=== PATIENT | female | born 1985 | race Caucasian/White ===

== ENCOUNTER 2016-05-22 13:34 | Emergency (ER) | payer OTHER ==
[~2016-05-22] VITALS: Ht 165.1 cm; Wt 60.3 kg
[~2016-05-22 13:34] MED LIST: MULT-506 PO; SULF800T23 PO
[2016-05-22 13:47] VITALS: TEMP 36.8; Ht 165.1 cm; Wt 60.3 kg
--- NOTE | 2016-05-22 15:18 | DIAGNOSTIC IMAGING REPORT ---
TWO VIEW CHEST CLINICAL HISTORY: Cough and fever. FINDINGS: PA and lateral chest radiographs are compared to study dated 12/20/2015. The cardiomediastinal silhouette is unremarkable. There are streaky airspace opacities in the retrocardiac region. The lungs and pleural spaces are otherwise clear. There is no pneumothorax. The bony thorax appears intact. IMPRESSION: There are streaky airspace opacities identified in the retrocardiac region. The appearance is concerning for pneumonia. Radiographic follow-up to resolution is recommended. Electronically signed by: Modesto Ferrer M.D. 05/22/2016 3:16 PM
[2016-05-22] MEDS ORDERED: ACET-1311 PO (15:35)
[2016-05-22] MEDS ORDERED: LEVO-366 PO (15:40)
--- NOTE | 2016-05-22 15:40 | EMERGENCY ROOM VISIT NOTE ---
ED Visit Note First contact with patient: 14:46 CHIEF COMPLAINT: Cough and fever 1 week History of present illness: Patient is an otherwise healthy 30-year-old white female who presents the emergency department for evaluation of a cough, intermittent fever that has been present for about a week. She started to get sick around [place]. She reports a deep, forceful cough, occasionally she coughs so hard that she vomits. She has intermittent wheezing, feels slightly short of breath. She denies any real chest pain. Fevers have been low-grade, temperature max was last night and was 101.1F orally. She has taken Tylenol for her fever. She reports symptoms similar to this about a year ago and was treated for bronchitis. She is concerned she could have pneumonia. REVIEW OF SYSTEMS: Review of systems as per HPI. All other systems reviewed were negative. 10 systems reviewed. PMH: Electronic medical records are reviewed and summarized as above/below. See Problem List. SOCIAL HISTORY: Patient lives at home with her son. Employed. She does not smoke. PHYSICAL EXAM: Vital Signs: Reviewed Nurse's notes. MENTAL STATUS: Patient is a well-appearing 30-year-old white female who is awake and alert and in no acute distress. Vital signs are stable. HEAD: Atraumatic, without temporal or scalp tenderness. EYES: PERRL, EOMI, no discharge or injection. EARS: Tympanic membranes intact, not inflamed, have normal contour. External canals clear. NOSE: Nares patent, moist without rhinorrhea. MOUTH: Mucous membranes moist, no lesions, tongue and gums appear normal. THROAT: No pharyngeal injection, exudates, or tonsillar hypertrophy. Airway is patent. NECK: Supple, nontender, no lymphadenopathy. HEART: Regular rate and rhythm without murmurs, ectopy, gallops, or rubs. LUNGS: Clear to auscultation and breath sounds equal, no wheezes, rales, or rhonchi. SKIN: Normal. NEUROLOGICAL: Sensory and motor functions grossly intact. Normal gait. EMERGENCY DEPARTMENT COURSE: Chest x-ray was obtained and findings are concerning for a retrocardiac airspace opacity that could represent a pneumonia. The patient is unable to take azithromycin. She has been treated with Levaquin in the past. She was given 500 mg orally in the emergency department. She is given albuterol inhaler with a spacer. She was given a prescription for prednisone, but told to hold off on this, and she feels like she is not improving. Continued supportive measures were discussed. Differential diagnosis includes viral illness including influenza, pneumonia, bronchitis, bronchiolitis, among others. TWO VIEW CHEST CLINICAL HISTORY: Cough and fever. FINDINGS: PA and lateral chest radiographs are compared to study dated 12/20/2015. The cardiomediastinal silhouette is unremarkable. There are streaky airspace opacities in the retrocardiac region. The lungs and pleural spaces are otherwise clear. There is no pneumothorax. The bony thorax appears intact. IMPRESSION: There are streaky airspace opacities identified in the retrocardiac region. The appearance is concerning for pneumonia. Radiographic follow-up to resolution is recommended. Problem List Medical Problems: (1) Acute bronchitis Status: Resolved (2) Bladder infection Status: Resolved (3) Kidney infection Status: Resolved (4) Pyelonephritis Status: Resolved (5) Upper abdominal pain Status: Resolved (6) UTI (urinary tract infection) Status: Resolved Surgical Problems: (1) Breast Implant Status Status: Resolved (2) H/O wisdom tooth extraction Status: Resolved (3) Osteochondroma Status: Resolved Current/Historical Medications Scheduled Acetaminophen (Tylenol), 650 MG PO DIRECTED Levofloxacin (Levaquin), 500 MG PO DAILY Multivitamin (Multivitamin), 1 TAB PO DAILY Prednisone (Prednisone), 50 MG PO DAILY Allergies Coded Allergies: Azithromycin (Verified Allergy, Severe, SHORTNESS OF BREATH, 05/22/16) Codeine (Verified Allergy, Severe, ANAPHYLAXIS, 05/22/16) Vital Signs Date Time Temp Pulse Resp B/P Pulse Ox O2 Delivery O2 Flow Rate FiO2 05/22/16 15:58 76 14 121/73 100 05/22/16 15:21 68 15 116/70 99 Room Air 05/22/16 13:47 36.8 80 18 123/76 99 Room Air Medications Administered Medications (Trade) Dose Ordered Sig/Bessie Route Start Time Stop Time Status Last Admin Dose Admin Levofloxacin (Levaquin Tab) 500 mg NOW STAT PO 05/22/16 15:41 05/22/16 15:43 DC 05/22/16 15:55 500 MG Albuterol (Ventolin Hfa Inhaler) 2 puffs NOW ONCE INH 05/22/16 15:45 05/22/16 15:46 DC 05/22/16 15:55 60 PUFFS Departure Information Impression Primary Impression: Pneumonia Prescriptions Prednisone (Prednisone) 50 Mg Tab 50 MG PO DAILY for 5 Days, #5 TAB Prov: Myrna Shea PA 05/22/16 Levofloxacin (Levaquin) 500 Mg Tab 500 MG PO DAILY, #10 TAB Prov: Myrna Shea PA 05/22/16 Referrals Kim Gill MD (PCP) Patient Instructions [facility], My [facility] Additional Instructions Levafloxacin(Levaquin) 500mg: Take one pill daily for 10 days for your infection. All antibiotics can cause diarrhea. If this occurs and you feel worse or it does not resolve in 1-2 days follow up with your doctor or return to the Emergency Department as this could be signs of serious underlying problems. If you experience any pain in your tendons /joints or any tendon injury return to the ER for re-evaluation. Any medication can cause an allergic reaction, stop the pills immediately and return to the ER for rash, hives, breathing difficulties, or swelling. Albuterol Inhaler: Take 2 puffs four times daily for seven days, then as needed. Ibuprofen(Motrin, Advil) may be used for fever or pain. Use 600mg every six hours as needed. Take with food. Avoid using more than 2400mg in a 24 hour period. Do not use 2400mg per day for more than three consecutive days without physician direction. Prolonged inappropriate use can lead to stomach upset or ulcers. This is available over the counter and typically comes in 200mg tablets. (AND/OR) Acetaminophen(Tylenol) may be used for fever or pain. Use 1000mg every eight hours as needed. Avoid using more than 3000mg in a 24 hour period. This is available over the counter. Read all the package inserts or medication information paperwork provided. If you have any questions or concerns call your primary provider, pharmacist or the ER for assistance. Controlling your fever with Tylenol and Ibuprofen as above will make you feel better. Rest and drink plenty of fluids. Avoid strenuous activity until your symptoms resolve and your breathing returns to normal. Continue current medications. Return to the ER for chest pain, difficulty breathing, persistent fevers, vomiting, worsening of your condition, or as needed Follow-up with your primary care physician as you have scheduled.
[2016-05-22] MEDS ORDERED: LEVOFLOXACIN 250 MG TAB PO STA (15:41)
[2016-05-22] MEDS ORDERED: ALBUTEROL HFA 8 GM INHALER INH ONE (15:45)
[2016-05-22] MEDS ORDERED: PRED50TA PO (15:46)
[2016-05-22 15:58] VITALS: BP 121/73; PULSE 76; O2SAT 100
== END 2016-05-22 16:03 | disposition home or self-care (01) ==
LOC: C.EDB 13:36 → C.EDC 16:03
DX: J18.9 Pneumonia, unspecified organism (principal); Z79.52 Long term (current) use of systemic steroids

== ENCOUNTER → 2016-07-27 | Outpatient (CLI) | payer OTHER ==
[~2016-07-27] MED LIST changes: +ACET-1311 PO; +ATV1 PO; +LEVO-366 PO; +LXP10 PO; -SULF800T23 PO
--- NOTE | 2016-07-27 13:58 | DIAGNOSTIC IMAGING REPORT ---
RIGHT HAND MIN 3 VIEWS CLINICAL HISTORY: RIGHT HAND PAIN Right pain COMPARISON: None. DISCUSSION: The bones and joint spaces appear intact. There is no evidence of fracture, dislocation or bony disease. There is no evidence for soft tissue swelling. IMPRESSION: Negative study. Electronically signed by: Stephen Kauffman M.D. 07/27/2016 1:56 PM Dictated Date/Time: 07/27/2016 1:56 PM
== END | disposition home or self-care (01) ==
LOC: C.RDSM 14:40
PROVIDERS: ATTEND Internal Medicine
DX: M79.641 Pain in right hand (principal)

== ENCOUNTER 2016-12-18 18:07 | Emergency (ER) | payer OTHER ==
[~2016-12-18] VITALS: Ht 167.6 cm; Wt 57.7 kg
[~2016-12-18 18:07] MED LIST changes: -ATV1 PO; -LEVO-366 PO; -LXP10 PO
[2016-12-18 18:14] VITALS: TEMP 36.4; Ht 167.6 cm; Wt 57.7 kg
[2016-12-18] MEDS ORDERED: LXP10 PO (18:50)
[2016-12-18] MEDS ORDERED: ATV1 PO (18:50)
--- NOTE | 2016-12-18 19:05 | EMERGENCY ROOM VISIT NOTE ---
History Report prepared by Meghna: Filemon Montague Under the Supervision of: Dr. Tony Prather M.D. First contact with patient: 18:33 Chief Complaint: ANXIETY Stated Complaint: ANXIETY ATTACK, NUMBNESS Nursing Triage Summary: "When I was driving everything numbed up and locked up on me and I couldn't drive. I also had tunnel vision. I know this is from my anxiety." Hx anxiety, takes meds but did not help today, feels this is a typical anxiety attack. History of Present Illness The patient is a 30 year old female who presents to the Emergency Room with complaints of improving anxiety occurring prior to arrival. The patient states that she has been anxious because there are a lot of things going on in her home life because her mom is threatening to put her dad in senior care. Additionally, she states that work has been stressful. The patient states that she was driving home from picking her son up, and she states that she started to feel tight, hyperventilate, and her hands locked up. She states that she is currently on Lexapro, though she states that she dislikes it because she cannot focus, and it sedates her. Additionally she takes lorazepam as needed, and she sees a therapist for her anxiety. The patient denies any suicidal or homicidal thoughts. She states she is taking her medications regularly. The patient denies any thyroid problems and history of diabetes. Source of History: patient Onset: prior to arrival Position: other (global) Quality: other (anxiety) Timing: other (improving) Note: Associated symptoms: Tightening up and hyperventilating Review of Systems See HPI for pertinent positives & negatives. A total of 10 systems reviewed and were otherwise negative. Past Medical & Surgical Medical Problems: (1) Acute bronchitis (2) Bladder infection (3) Kidney infection (4) No Known Active Medical Problems (5) Pyelonephritis (6) Upper abdominal pain (7) UTI (urinary tract infection) Surgical Problems: (1) Breast Implant Status (2) H/O wisdom tooth extraction (3) Osteochondroma Old medical records were reviewed. Nurse's notes were reviewed and I agree with. Family History Gallbladder disease Kidney stones Social History Smoking Status: Never Smoker Alcohol Use: none Drug Use: none Marital Status: Housing Status: lives with family Occupation Status: employed Current/Historical Medications Scheduled Escitalopram Oxalate (Escitalopram Oxalate), 10 MG PO QPM Scheduled PRN Lorazepam (Lorazepam), 0.5-1 MG PO DAILY PRN for Anxiety Allergies Coded Allergies: Azithromycin (Verified Allergy, Severe, SHORTNESS OF BREATH, 12/18/16) Codeine (Verified Allergy, Severe, ANAPHYLAXIS, 12/18/16) Physical Exam Vital Signs Date Time Temp Pulse Resp B/P (MAP) Pulse Ox O2 Delivery O2 Flow Rate FiO2 12/18/16 19:45 59 17 108/72 100 12/18/16 18:14 36.4 73 18 119/83 98 Room Air Physical Exam General: Non-ill appearing young female in no acute distress. HEENT: Normal cephalic atraumatic. Pupils are equal round and reactive to light. Extraocular movements are intact. Oropharynx is pink with moist mucous membranes. No swelling of the mouth lips or tongue. Neck: Supple with a midline trachea. No meningeal signs or stiffness, no JVD or bruits. No Stridor. Chest: Clear to auscultation bilaterally. No wheezes or rhonchi. No increased work of breathing. Heart: regular rate and rhythm. Abdomen: Soft nontender, nondistended without rebound guarding or rigidity. Extremities: No cyanosis clubbing or edema. No calf tenderness or assymetry Spine/Back. Non tender to palpation. No CVA tenderness Skin: Good turgor without rashes. Neurologic exam: Cranial nerves two through 12 are intact. Motor and sensation are intact and symmetrical throughout. Psych: Normal thought process and affect. Denies suicidal and homicidal ideations. Medical Decision & Procedures ER Provider Diagnostic Interpretation: Radiology results as stated below per my review and radiologist interpretation: RIGHT HAND 3 VIEWS CLINICAL HISTORY: Right hand injury. FINDINGS: 3 views of right hand are compared to study dated 07/27/2016. The skeletal structures are well mineralized. No fracture is seen. The joint spaces of the hand are well-maintained. The overlying soft tissues are within normal limits. IMPRESSION: Unremarkable radiographic assessment of the right hand. Electronically signed by: Modesto Ferrer M.D. 12/18/2016 7:42 PM Dictated Date/Time: 12/18/2016 7:41 PM ED Course 1833: Past medical records reviewed. The patient was evaluated in room A5, and a complete history and physical examination were performed. 1946: Upon reevaluation, the patient is resting. I discussed the results and treatment plan with her. She verbalized agreement of the treatment plan. The patient was discharged home. Medical Decision Differentials include, but are not limited to; anxiety, depression, medication side effect, electrolyte or metabolic abnormality. This patient comes in as described above. She was placed in room A5. She is here for treatment and evaluation of breath after having a panic attack. She is hyperventilating and her hands got tight. She feels better at present. She has been taking Lexapro but feels is not making her better. She denies any suicidal or homicidal ideations. She does have Ativan that she uses when necessary very sparingly. She denies any overdose she looks well at present and is calm down is asymptomatic. I had Adelina, our ER psychiatric rn case manager talk to her as well. They have recommended that she talk to her psychiatrist tomorrow about possibly weaning her off her Lexapro and she can use Ativan if needed. She feels comfortable and would like to home. She also told Adelina that she has some mild pain in her right third knuckle where she punched a wall the other day when she was stressed. I did x-ray was unremarkable. Again she denies any suicidal or homicidal ideations and has close follow-up she will be discharged home. She will return if: worsening of symptoms, thoughts of hurting herself or others, any new problems or concerns and call her psychiatrist tomorrow. Medication Reconcilliation Current Medication List: was personally reviewed by me Blood Pressure Screening Patient's blood pressure: Normal blood pressure Impression Primary Impression: Anxiety Additional Impression: Contusion of right hand Scribe Attestation The scribe's documentation has been prepared under my direction and personally reviewed by me in its entirety. I confirm that the note above accurately reflects all work, treatment, procedures, and medical decision making performed by me. Departure Information Dispostion Home / Self-Care Referrals No Doctor, Assigned (PCP) Forms HOME CARE DOCUMENTATION FORM, IMPORTANT VISIT INFORMATION Patient Instructions My [facility] Additional Instructions Rest. Call your psychiatrist tomorrow and talk about tapering off her Lexapro potentially May use her Ativan if needed for anxiety attacks however ensure that you do not take before drinking, driving, working Return to ER if: Worsening of symptoms, thoughts of hurting yourself or others, any new problems or concerns. Problem Qualifiers
--- NOTE | 2016-12-18 19:43 | DIAGNOSTIC IMAGING REPORT ---
RIGHT HAND 3 VIEWS CLINICAL HISTORY: Right hand injury. FINDINGS: 3 views of right hand are compared to study dated 07/27/2016. The skeletal structures are well mineralized. No fracture is seen. The joint spaces of the hand are well-maintained. The overlying soft tissues are within normal limits. IMPRESSION: Unremarkable radiographic assessment of the right hand. Electronically signed by: Modesto Ferrer M.D. 12/18/2016 7:42 PM Dictated Date/Time: 12/18/2016 7:41 PM
[2016-12-18 19:45] VITALS: BP 108/72; PULSE 59; O2SAT 100
== END 2016-12-18 19:45 | disposition home or self-care (01) ==
LOC: C.EDB 18:08 → C.EDA 19:45
DX: F41.9 Anxiety disorder, unspecified (principal); S60.221A Contusion of right hand, initial encounter; W22.09XA Striking against other stationary object, initial encounter; Z87.440 Personal history of urinary (tract) infections; Z98.82 Breast implant status; D16.9 Benign neoplasm of bone and articular cartilage, unspecified

== ENCOUNTER → 2017-02-08 | Outpatient (CLI) | payer OTHER ==
[~2017-02-08] MED LIST changes: -ACET-1311 PO; +ATV1 PO; +LXP10 PO; -MULT-506 PO
[2017-02-08 15:48] LABS: BASO % 0.3 %; BASO ABS # 0.02 K/uL (0-0.2); COMPLETE YES; EOS % 1.3 %; HEMATOCRIT 39.5 % (37-47); IG% 0.1 %; LYMPH % 31.2 %; LYMPH ABS # 2.22 K/uL (1.2-3.4); MEAN CELL VOLUME 90.4 fL (80-100); MEAN CORPUSCULAR HEMOGLOBIN 30.2 pg (25-34); MEAN CORPUSCULAR HGB CONC 33.4 g/dl (32-36); MEAN PLATELET VOLUME 11.4 fL (7.4-10.4); MONO % 9.3 %; NEUT % 57.8 %; PLATELET COUNT 203 K/uL (130-400); RED BLOOD COUNT 4.37 M/uL (4.2-5.4); WHITE BLOOD COUNT 7.12 K/uL (4.8-10.8)
[2017-02-08 15:54] LABS: URINE APPEARANCE TURBID (CLEAR); URINE BILIRUBIN NEG (NEG); URINE COLOR DK YELLOW; URINE EPITHELIAL CELL AUTO >30 /lpf (0-5); URINE NITRITE NEG (NEG); URINE SPECIFIC GRAVITY 1.033 (1.000-1.030); UROBILINOGEN NEG (NEG)
[2017-02-08 15:57] LABS: MANUAL MICROSCOPIC REQUIRED? NO; REVIEW REQ? NO
[2017-02-12 10:06] LABS: CHLAMYDIA TRACH RNA*** NOT DETECTED (NOT DETECTED); GC (NEIS GONORRHOEAE)RNA** NOT DETECTED (NOT DETECTED)
== END | disposition home or self-care (01) ==
LOC: C.LAB1850 14:23
PROVIDERS: ATTEND Obstetrics & Gynecology
DX: R10.2 Pelvic and perineal pain (principal)

== ENCOUNTER → 2017-08-16 | Outpatient (CLI) | payer OTHER | END | disposition home or self-care (01) | LOC: C.LAB1850 10:13 | PROVIDERS: ATTEND Obstetrics & Gynecology | DX: N91.2 Amenorrhea, unspecified (principal) ==

== ENCOUNTER → 2017-09-07 | Outpatient (CLI) | payer OTHER ==
[2017-09-07 12:26] LABS: BASO % 0.1 %; BASO ABS # 0.01 K/uL (0-0.2); EOS % 0.4 %; EOS ABS # 0.05 K/uL (0-0.5); HEMOGLOBIN 13.6 g/dL (12.0-16.0); IG# 0.03 K/uL (0.00-0.02); LYMPH % 15.1 %; LYMPH ABS # 1.69 K/uL (1.2-3.4); MEAN CELL VOLUME 89.7 fL (80-100); MEAN CORPUSCULAR HEMOGLOBIN 30.5 pg (25-34); MONO % 5.7 %; MONO ABS # 0.64 K/uL (0.11-0.59); NEUT % 78.4 %; NEUT ABS # 8.76 K/uL (1.4-6.5); PLATELET COUNT 257 K/uL (130-400); RED CELL DISTRIBUTION WIDTH CV 12.9 % (11.5-14.5); RED CELL DISTRIBUTION WIDTH SD 42.2 fL (36.4-46.3); WHITE BLOOD COUNT 11.18 K/uL (4.8-10.8)
== END | disposition home or self-care (01) ==
LOC: C.LAB1850 10:49
PROVIDERS: ATTEND Obstetrics & Gynecology
DX: Z34.81 Encounter for supervision of other normal pregnancy, first trimester (principal)

== ENCOUNTER → 2017-09-07 | Outpatient (CLI) | payer OTHER | END | disposition home or self-care (01) | LOC: C.PAPS 12:02 | PROVIDERS: ATTEND Obstetrics & Gynecology | DX: Z34.81 Encounter for supervision of other normal pregnancy, first trimester (principal) ==